=== PATIENT | male | born 1990 | race American Indian/Alaskan Native ===

== ENCOUNTER 2021-03-01 15:33 | Emergency (ER) | payer SELFPAY ==
[2021-03-01 15:47] VITALS: BP 110/74
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
[2021-03-01] MEDS ORDERED: LIDOCAINE-MPF (1%) 10 MG/1 ML VIAL 5 ML INFILTRATI ONE (17:18)
== END 2021-03-01 18:05 | disposition home or self-care (01) ==
LOC: ED 15:33
DX: S61.411A Laceration without foreign body of right hand, initial encounter (principal); Z79.899 Other long term (current) drug therapy; Y36.90XA War operations, unspecified, initial encounter; Y93.89 Activity, other specified; Y92.89 Other specified places as the place of occurrence of the external cause; Y99.8 Other external cause status
CPT/HCPCS: 73130; 96372; 99283; J0696